=== PATIENT | female | born 1960 | race Caucasian/White ===

== ENCOUNTER 2018-02-12 16:19 | Emergency (ER) | payer OTHER ==
[~2018-02-12] VITALS: Ht 162.6 cm; Wt 88.6 kg
[2018-02-12 16:41] VITALS: BP 129/71; PULSE 103; RESP 16; TEMP 100.2; O2SAT 97
[2018-02-12] MEDS ORDERED: SODIUM CHLOR 0.9% 1000 ML INJ 1,000 ML IV ONE (18:45)
[2018-02-12] MEDS ORDERED: KETOROLAC TROMETHAMINE 30 MG/ML (IVP) VIAL IV PUSH ONE (18:45)
[2018-02-12] MEDS ORDERED: ACETAMINOPHEN 325 MG TAB PO ONE (18:45)
--- NOTE | 2018-02-12 19:00 | PD ---
HPI Chief Complaint: Musculoskeletal Complaint Time Seen by Provider: 18:36 Travel History International Travel<30 days: No Contact w/Intl Traveler<30days: No Traveled to known affect area: No History of Present Illness HPI The patient is a 57-year-old female who presents to the emergency department for generalized fever, body aches, and rash. The patient states she is currently visiting from [place], visiting family in the local area. She has been unable to return to [place] because she lost her gait in the car. 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 The patient also states that one week ago she had a sore throat, fever, headache, cervical lymphadenopathy, and generalized malaise. The cervical lymphadenopathy has had a waxing and waning course. The sore throat improved. She does have a dry nonproductive cough with a history of tobacco use. She denies any chest pain, shortness of breath, nausea, vomiting, or abdominal pain. She also complains of a chronic sore on the medial aspect of the right lower extremity secondary to previous injury that was evaluated in [place]. She states the area will get larger and smaller, intermittently, but denies any drainage from the affected area. The patient does not have a local primary physician. PFSH Past Medical History Narrative Medical Pustular psoriasis Diminished Hearing: No Immunizations Current: Yes Menopausal: Yes Tubal Ligation: Yes Past Surgical History Cholecystectomy: Yes Social History Alcohol Use: Yes (drinks daily) Tobacco Use: Yes (1/2 PPD) Substance Use: No Allergies-Medications (Allergen,Severity, Reaction): Coded Allergies: aspirin (Unverified Allergy, Intermediate, "MY BLOOD IS TOO THIN", 02/12/18 ) ciprofloxacin (Unverified Allergy, Intermediate, HIVES, 02/12/18) Reported Meds & Prescriptions Reported Meds & Active Scripts Active No Active Prescriptions or Reported Medications Review of Systems Except as stated in HPI: all other systems reviewed are Neg General / Constitutional: Positive: Fever Eyes: No: Photophobia HENT: Positive: Headaches, Sore Throat, Neck Pain Cardiovascular: No: Chest Pain or Discomfort Respiratory: Positive: Cough, No: Shortness of Breath Gastrointestinal: No: Nausea, Vomiting, Diarrhea Genitourinary: No: Dysuria Musculoskeletal: Positive: Myalgias Skin: Positive Rash Physical Exam Narrative GENERAL: Awake, alert, 57-year-old female who appears her stated age and is in no acute respiratory distress. SKIN: Patient has pustules noted over the palms and extensor surface of the hands as well as the dorsal aspect of the foot. She also has a flaking psoriatic rash on the bottom of the feet bilaterally. No visible rash of the trunk or back. No visible involvement of the oropharynx. EYES: Pupils equal and round. No scleral icterus. No injection or drainage. ENT: No nasal bleeding or discharge. Poor dentition. No visible rash in the oropharynx. NECK: Trachea midline. No JVD. Bilateral shotty anterior cervical lymphadenopathy which is mobile and tender. No meningeal signs. CARDIOVASCULAR: Regular, tachycardic with a heart rate of 103. RESPIRATORY: No accessory muscle use. Clear to auscultation. Breath sounds equal bilaterally. GASTROINTESTINAL: Abdomen soft, non-tender, nondistended. No rebound tenderness. MUSCULOSKELETAL: Rash as previously noted. Circular lesion on the medial aspect the right lower extremity with a scab in place but no underlying fluctuance. It is approximately 15 cm proximal to the medial malleolus. Approximately 2.5 cm in diameter. NEUROLOGICAL: Awake and alert. No obvious cranial nerve deficits. Motor grossly within normal limits. Normal speech. Nonfocal. Oriented 3. Back: No tenderness over the CVA. No midline tenderness. PSYCHIATRIC: Appropriate mood and affect; insight and judgment normal. Data Data Last Documented VS Vital Signs Date Time Temp Pulse Resp B/P (MAP) Pulse Ox O2 Delivery O2 Flow Rate FiO2 02/12/18 19:16 97 Room Air 02/12/18 19:16 80 20 149/89 (109) 02/12/18 16:41 100.2 Orders Orders Sepsis Workup Initiated (02/12/18 ) Electrocardiogram (02/12/18 18:45) Complete Blood Count With Diff (02/12/18 18:45) Comprehensive Metabolic Panel (02/12/18 18:45) Prothrombin Time / Inr (Pt) (02/12/18 18:45) Act Partial Throm Time (Ptt) (02/12/18 18:45) Urinalysis - C+S If Indicated (02/12/18 18:45) Influenzae A/B Antigen (02/12/18 18:45) Blood Culture (02/12/18 18:45) Chest, Single Ap (02/12/18 18:45) Blood Glucose (02/12/18 18:45) Ecg Monitoring (02/12/18 18:45) Iv Access Insert/Monitor (02/12/18 18:45) Oximetry (02/12/18 18:45) Oxygen Administration (02/12/18 18:45) Acetaminophen (Tylenol) (02/12/18 18:45) Sodium Chlor 0.9% 1000 Ml Inj (Ns 1000 M (02/12/18 18:45) Lactic Acid (02/12/18 18:45) Rapid Plasmin Reagin Screen (02/12/18 18:45) Ketorolac Inj (Toradol Inj) (02/12/18 18:45) Morphine Inj (Morphine Inj) (02/12/18 20:15) Ondansetron Inj (Zofran Inj) (02/12/18 20:15) Hydromorphone Pf Inj (Dilaudid Pf Inj) (02/12/18 20:30) Urine Culture (02/12/18 19:50) Ceftriaxone Inj (Rocephin Inj) (02/12/18 20:45) Labs Laboratory Tests Test 02/12/18 19:48 02/12/18 19:50 Lactic Acid Level 1.2 mmol/L White Blood Count 14.8 TH/MM3 Red Blood Count 4.75 MIL/MM3 Hemoglobin 13.9 GM/DL Hematocrit 42.0 % Mean Corpuscular Volume 88.4 FL Mean Corpuscular Hemoglobin 29.2 PG Mean Corpuscular Hemoglobin Concent 33.0 % Red Cell Distribution Width 13.4 % Platelet Count 406 TH/MM3 Mean Platelet Volume 8.4 FL Neutrophils (%) (Auto) 75.4 % Lymphocytes (%) (Auto) 18.7 % Monocytes (%) (Auto) 3.2 % Eosinophils (%) (Auto) 1.3 % Basophils (%) (Auto) 1.4 % Neutrophils # (Auto) 11.1 TH/MM3 Lymphocytes # (Auto) 2.8 TH/MM3 Monocytes # (Auto) 0.5 TH/MM3 Eosinophils # (Auto) 0.2 TH/MM3 Basophils # (Auto) 0.2 TH/MM3 CBC Comment DIFF FINAL Differential Comment Urine Color YELLOW Urine Turbidity CLEAR Urine pH 5.5 Urine Specific [place] GREATER/EQUAL 1.030 Urine Protein NEG mg/dL Urine Glucose (UA) NEG mg/dL Urine Ketones TRACE mg/dL Urine Occult Blood TRACE Urine Nitrite POS Urine Bilirubin NEG Urine Urobilinogen 0.2 MG/DL Urine Leukocyte Esterase TRACE Urine RBC 3-5 /hpf Urine WBC 15-19 /hpf Urine Squamous Epithelial Cells > 8 /hpf Urine Bacteria MANY /hpf Microscopic Urinalysis Comment CULTURE INDICATED Blood Urea Nitrogen 13 MG/DL Creatinine 0.90 MG/DL Random Glucose 100 MG/DL Total Protein 8.6 GM/DL Albumin 3.1 GM/DL Calcium Level 9.3 MG/DL Alkaline Phosphatase 118 U/L Aspartate Amino Transf (AST/SGOT) 24 U/L Alanine Aminotransferase (ALT/SGPT) 20 U/L Total Bilirubin 0.4 MG/DL Sodium Level 137 MEQ/L Potassium Level 4.6 MEQ/L Chloride Level 104 MEQ/L Carbon Dioxide Level 26.7 MEQ/L Anion Gap 6 MEQ/L Estimat Glomerular Filtration Rate 65 ML/MIN MDM Medical Decision Making Medical Screen Exam Complete: Yes Emergency Medical Condition: Yes Medical Record Reviewed: Yes Interpretation(s) EKG reveals normal sinus rhythm with a rate of 78. No ischemic changes or ectopy noted. Last Impressions Chest X-Ray 02/12/18 184 Signed Impressions: Service Date/Time: Monday, February 12, 2018 18:57 - CONCLUSION: No acute disease. Raad Cuellar MD Date/Time Source Procedure Growth Status 02/12/18 19:48 Blood Peripheral Aerobic Blood Culture Pending Received 02/12/18 19:48 Blood Peripheral Anaerobic Blood Culture Pending Received 02/12/18 19:45 Blood Peripheral Aerobic Blood Culture Pending Received 02/12/18 19:45 Blood Peripheral Anaerobic Blood Culture Pending Received 02/12/18 19:40 Nasal Aspirate Influenza Types A,B Antigen (RUTH) - Final NEGATIVE FOR FLU A AND B ANTIGEN.... Complete 02/12/18 19:50 Urine Clean Catch Urine Culture Pending Received Laboratory Tests Test 02/12/18 19:48 02/12/18 19:50 Lactic Acid Level 1.2 mmol/L White Blood Count 14.8 TH/MM3 Red Blood Count 4.75 MIL/MM3 Hemoglobin 13.9 GM/DL Hematocrit 42.0 % Mean Corpuscular Volume 88.4 FL Mean Corpuscular Hemoglobin 29.2 PG Mean Corpuscular Hemoglobin Concent 33.0 % Red Cell Distribution Width 13.4 % Platelet Count 406 TH/MM3 Mean Platelet Volume 8.4 FL Neutrophils (%) (Auto) 75.4 % Lymphocytes (%) (Auto) 18.7 % Monocytes (%) (Auto) 3.2 % Eosinophils (%) (Auto) 1.3 % Basophils (%) (Auto) 1.4 % Neutrophils # (Auto) 11.1 TH/MM3 Lymphocytes # (Auto) 2.8 TH/MM3 Monocytes # (Auto) 0.5 TH/MM3 Eosinophils # (Auto) 0.2 TH/MM3 Basophils # (Auto) 0.2 TH/MM3 CBC Comment DIFF FINAL Differential Comment Urine Color YELLOW Urine Turbidity CLEAR Urine pH 5.5 Urine Specific [place] GREATER/EQUAL 1.030 Urine Protein NEG mg/dL Urine Glucose (UA) NEG mg/dL Urine Ketones TRACE mg/dL Urine Occult Blood TRACE Urine Nitrite POS Urine Bilirubin NEG Urine Urobilinogen 0.2 MG/DL Urine Leukocyte Esterase TRACE Urine RBC 3-5 /hpf Urine WBC 15-19 /hpf Urine Squamous Epithelial Cells > 8 /hpf Urine Bacteria MANY /hpf Microscopic Urinalysis Comment CULTURE INDICATED Blood Urea Nitrogen 13 MG/DL Creatinine 0.90 MG/DL Random Glucose 100 MG/DL Total Protein 8.6 GM/DL Albumin 3.1 GM/DL Calcium Level 9.3 MG/DL Alkaline Phosphatase 118 U/L Aspartate Amino Transf (AST/SGOT) 24 U/L Alanine Aminotransferase (ALT/SGPT) 20 U/L Total Bilirubin 0.4 MG/DL Sodium Level 137 MEQ/L Potassium Level 4.6 MEQ/L Chloride Level 104 MEQ/L Carbon Dioxide Level 26.7 MEQ/L Anion Gap 6 MEQ/L Estimat Glomerular Filtration Rate 65 ML/MIN Differential Diagnosis Differential diagnosis includes viral exanthem, [id number]-[id number]-mouth disease, secondary syphilis, pustular psoriasis, disseminated gonorrhea, cellulitis, influenza. Narrative Course IV was established, labs are drawn and sent, and the patient was placed on cardiac telemetry monitoring and continuous pulse oximetry monitoring. Blood culture and lactic acid were sent to lab. Chest x-ray was obtained. The patient was administered IV fluids and Toradol. RPR was sent to lab. Chest x- ray was unremarkable. Influenza screen is negative. White count is mildly elevated at 14.8. LFTs and lipase with BUN and creatinine are normal. I did review the EMR, the patient had a negative FTA-ABS in 2010. RPR is pending. Patient's rash could be secondary syphilis versus [id number] versus viral syndrome versus pustular psoriasis. She is advised to follow-up with dermatology. UA does reveal a UTI, patient was administered 1 dose of Rocephin and will be discharged home on Bactrim as she is allergic to Cipro. She is advised to follow-up with a primary physician and a tool technician. She will be provided a copy of her labs at discharge. Return if symptoms worsen or progress. RPR will have to be followed up with on an outpatient basis, we called lab and they only run it Thursday through Thursday and normal business hours. Diagnosis Primary Impression: UTI (urinary tract infection) Qualified Codes: N30.00 - Acute cystitis without hematuria Additional Impression: Rash and nonspecific skin eruption Patient Instructions: General Instructions Additional Instructions: Follow-up with a primary physician and dermatology. Please provide the patient a copy of her labs, x-ray results, and influenza results at discharge. Return if symptoms worsen or progress. Med/Other Pt SpecificInfo: Prescription(s) given Scripts Sulfamethoxazole-Trimethoprim (Bactrim DS) 800-160 Mg Tab 1 TAB PO BID for Infection, #14 TAB 0 Refills Prov: Humza Parsons MD 02/12/18 Disposition: DISCHARGE HOME Condition: Stable Humza Parsons MD Feb 12, 2018 19:00
[2018-02-12 19:16] VITALS: BP 149/89; PULSE 80; RESP 20; O2SAT 97
--- NOTE | 2018-02-12 19:46 | RADRPT ---
EXAM DATE/TIME: 02/12/2018 18:57 [facility] COMPARISON: No previous studies available for comparison. INDICATIONS : Fever. MEDICAL HISTORY : None. SURGICAL HISTORY : None. ENCOUNTER: Initial ACUITY: 1 day PAIN SCORE: 6/10 LOCATION: Bilateral chest FINDINGS: A single view of the chest demonstrates the lungs to be symmetrically aerated without evidence of mas s, infiltrate or effusion. The cardiomediastinal contours are unremarkable. Osseous structures are intact. CONCLUSION: No acute disease. Raad Cuellar MD on February 12, 2018 at 19:43 Board Certified Radiologist. This report was verified electronically.
[2018-02-12 20:04] LABS: BILIRUBIN, URINE NEG (NEG); BLOOD, URINE TRACE (NEG); GLUCOSE,URINE NEG (NEG); KETONE, URINE TRACE mg/dL (NEG); NITRITE,URINE POS (NEG); PH, URINE 5.5 (5.0-8.5); URINE COLOR YELLOW (YELLW/STRAW); URINE LEUKOCYTE ESTERASE TRACE (NEG)
[2018-02-12 20:10] LABS: AUTOMATED NEUTROPHIL # 11.1 TH/MM3 (1.8-7.7); BASOPHIL # 0.2 TH/MM3 (0-0.2); BASOPHIL % 1.4 % (0.0-2.0); EOSINOPHIL # 0.2 TH/MM3 (0-0.4); EOSINOPHIL % 1.3 % (0.0-4.0); HEMOGLOBIN 13.9 GM/DL (11.6-15.3); LYMPH % 18.7 % (9.0-44.0); LYMPHOCYTE # 2.8 TH/MM3 (1.0-4.8); MEAN CELL VOLUME 88.4 FL (80.0-100.0); MEAN CORPUSCULAR HEMOGLOBIN 29.2 PG (27.0-34.0); MEAN PLATELET VOLUME 8.4 FL (7.0-11.0); MONO % 3.2 % (0.0-8.0); MONOCYTE # 0.5 TH/MM3 (0-0.9); NEUT % 75.4 % (16.0-70.0); PLATELET COUNT 406 TH/MM3 (150-450); RED BLOOD COUNT 4.75 MIL/MM3 (4.00-5.30); RED CELL DISTRIBUTION WIDTH 13.4 % (11.6-17.2); WHITE BLOOD COUNT 14.8 TH/MM3 (4.0-11.0)
[2018-02-12] MEDS ORDERED: MORPHINE SULFATE 2 MG/ML INJ IV PUSH ONE (20:15)
[2018-02-12] MEDS ORDERED: ONDANSETRON HCL 4 MG/2 ML VIAL IV PUSH ONE (20:15)
[2018-02-12 20:18] LABS: CHLORIDE 104 MEQ/L (98-107); SODIUM (NA) 137 MEQ/L (136-145)
[2018-02-12 20:19] LABS: BACTERIA, URINE MANY /hpf; SQUAMOUS EPITHELIAL CELL URINE > 8 /hpf (0-5); WBC, URINE 15-19 /hpf (0-5)
[2018-02-12 20:21] LABS: CALCIUM 9.3 MG/DL (8.5-10.1)
[2018-02-12 20:22] LABS: ALBUMIN 3.1 GM/DL (3.4-5.0); BICARBONATE 26.7 MEQ/L (21.0-32.0); BLOOD UREA NITROGEN 13 MG/DL (7-18); GLUCOSE,RANDOM 100 MG/DL (74-106)
[2018-02-12 20:25] LABS: ALT (GPT) 20 U/L (10-53); AST (GOT) 24 U/L (15-37); GLOMERULAR FILTRATION RATE 65 ML/MIN (>89)
[2018-02-12 20:26] LABS: TOTAL BILIRUBIN ADULT 0.4 MG/DL (0.2-1.0)
[2018-02-12 20:27] LABS: TOTAL PROTEIN 8.6 GM/DL (6.4-8.2)
[2018-02-12 20:28] LABS: ALKALINE PHOSPHATASE 118 U/L (45-117)
[2018-02-12] MEDS ORDERED: HYDROmorphone HCL PF 2 MG/ML VIAL IV PUSH ONE (20:30)
[2018-02-12] MEDS ORDERED: cefTRIAXone INJ 1,000 MG in SODIUM CHLORIDE 0.9% INJ 100 ML IV ONE (20:45)
[2018-02-12] MEDS ORDERED: BACT800T5 PO (20:47)
[2018-02-12 20:53] LABS: PROTHROMBIN TIME - PATIENT 10.1 SEC (9.8-11.6)
[2018-02-12 21:00] VITALS: BP 143/58; PULSE 82; RESP 16; O2SAT 96
[2018-02-12] MEDS ORDERED: TRAM50TA PO (21:31)
[2018-02-12 22:10] VITALS: BP 132/67; PULSE 88; RESP 16; O2SAT 97
--- NOTE | 2018-02-13 19:31 | EKG ---
Date Performed: 02/12/2018 Time Performed: 19:12:44 PTAGE: 57 years EKG: Sinus rhythm NORMAL ECG Since the PREVIOUS TRACING , no significant change noted PREVIOUS TRACIN11/29/2010 17.17 DOCTOR: Alireza Hyman Interpretating Date/Time 02/13/2018 19:29:16
== END 2018-02-12 22:20 | disposition home or self-care (01) ==
LOC: PHED 16:19
DX: N30.00 Acute cystitis without hematuria (principal); R21 Rash and other nonspecific skin eruption; D72.829 Elevated white blood cell count, unspecified; M79.1 Myalgia; R05 Cough; R59.0 Localized enlarged lymph nodes; B96.20 Unspecified Escherichia coli [E. coli] as the cause of diseases classified elsewhere; F17.200 Nicotine dependence, unspecified, uncomplicated; Z87.2 Personal history of diseases of the skin and subcutaneous tissue
CPT/HCPCS: 71045; 80053; 81001; 83605; 85025; 85610; 85730; 86592; 87040; 87077; 87086; 87186; 87804; 93005; 96361; 96365; 96375; 99285; J0696; J1885; J2270; J2405; J7030

== ENCOUNTER 2018-02-19 19:20 | Observation (INO) | payer MEDICAID, OTHER ==
[~2018-02-19] VITALS: Ht 162.6 cm; Wt 81.5 kg
[~2018-02-19 19:20] MED LIST: BACT800T5 PO; TRAM50TA PO
[2018-02-19 19:23] VITALS: BP 142/89; PULSE 117; RESP 18; TEMP 99.3; O2SAT 96
[2018-02-19 21:50] VITALS: BP 146/61; PULSE 87; RESP 16; O2SAT 98
--- NOTE | 2018-02-19 22:09 | PD ---
HPI Chief Complaint: Injury Time Seen by Provider: 21:46 Travel History International Travel<30 days: No Contact w/Intl Traveler<30days: No Traveled to known affect area: No History of Present Illness HPI Patient is a 57-year-old female who was recently at [place] with a infected left foot she says she had an injury to the foot in July and it is never fully recovered. She has psoriasis on top of the injury and now appears to be cellulitic on top of the injury. Patient uses a cane to walk on the foot with the pain that she has she also has psoriasis in her hands and foot which is a chronic condition she has had. Now she is here for severe pain swelling redness and tenderness to the left foot it looks like there is an injury with cellulitis as well as psoriasis secondary on the opposite side of the foot and the plantar surface left side foot she is afebrile she was recently on Bactrim from [place] for UTI she was taking it twice daily she has 1 day left of that. She also was cultured at that time serology for syphilis but her RPR is negative. Patient in the ER is main complaint is pain localized left foot redness swelling tenderness Bactrim has not made it better PFSH Past Medical History Cerebrovascular Accident: Yes (x1) Diminished Hearing: No Immunizations Current: Yes Tetanus Vaccination: < 5 Years Influenza Vaccination: No ?: Not Menopausal: Yes Tubal Ligation: Yes Past Surgical History Cholecystectomy: Yes Social History Alcohol Use: No (quit) Tobacco Use: Yes (/ PPD) Substance Use: No Allergies-Medications (Allergen,Severity, Reaction): Coded Allergies: dalbavancin (Verified Allergy, Severe, Hives, 02/20/18) aspirin (Verified Allergy, Intermediate, "MY BLOOD IS TOO THIN", 02/19/18) ciprofloxacin (Verified Allergy, Intermediate, HIVES, 02/19/18) Reported Meds & Prescriptions Reported Meds & Active Scripts Active Review of Systems Except as stated in HPI: all other systems reviewed are Neg Musculoskeletal: Positive: Myalgias, Arthralgias Physical Exam Narrative GENERAL: SKIN: Warm and dry. HEAD: Atraumatic. Normocephalic. EYES: Pupils equal and round. No scleral icterus. No injection or drainage. ENT: No nasal bleeding or discharge. Mucous membranes pink and moist. NECK: Trachea midline. No JVD. CARDIOVASCULAR: Regular rate and rhythm. RESPIRATORY: No accessory muscle use. Clear to auscultation. Breath sounds equal bilaterally. GASTROINTESTINAL: Abdomen soft, non-tender, nondistended. Hepatic and splenic margins not palpable. MUSCULOSKELETAL: Extremities left foot was red and erythematous with a injury to the outer lateral aspect of the dorsum of the foot and the plantar medial aspect has psoriasis looking scales there is redness all the way around her toes and all the way up to her mid tib-fib tenderness swelling ...... NEUROLOGICAL: Awake and alert. No obvious cranial nerve deficits. Motor grossly within normal limits. Five out of 5 muscle strength in the arms and legs. Normal speech. PSYCHIATRIC: Appropriate mood and affect; insight and judgment normal. Data Data Last Documented VS Vital Signs Date Time Temp Pulse Resp B/P (MAP) Pulse Ox O2 Delivery O2 Flow Rate FiO2 02/20/18 07:27 84 20 135/64 (87) 98 Room Air 02/20/18 06:22 98.6 Orders Orders Vancomycin Inj (Vancomycin Inj) (02/19/18 22:15) Complete Blood Count With Diff (02/19/18 22:33) Comprehensive Metabolic Panel (02/19/18 22:33) Lipase (02/19/18 22:33) Blood Culture (02/19/18 22:33) Lactic Acid (02/19/18 22:33) Foot, Complete ([id number]) (02/19/18 ) Ankle, Complete ([id number]) (02/19/18 ) Wound Culture And Gram Stain (02/20/18 00:14) Ketorolac Inj (Toradol Inj) (02/20/18 00:30) [facility] ([facility] (02/20/18 05:00) Asp:No Reaction To Dalbav/Vanc (Asp Crit (02/20/18 06:15) Asp: Does Not Meet Inpt Admit (Asp Crit: (02/20/18 06:15) Asp: Iv Antibiotics Admit Only (Asp Crit (02/20/18 06:15) Asp: Location Of Dalbav Admin (Asp Crit: (02/20/18 06:15) [facility] ([facility] (02/20/18 06:15) Dalbavancin Inj (Dalvance Inj) (02/20/18 06:01) Diphenhydramine Inj (Benadryl Inj) (02/20/18 07:15) Methylprednisolone So Succ Inj (Solumedr (02/20/18 07:15) Famotidine Inj (Pepcid Inj) (02/20/18 07:15) Sodium Chloride 0.9% Flush (Ns Flush) (02/20/18 07:15) Admit Order (Ed Use Only) (02/20/18 08:05) Labs Laboratory Tests Test 02/19/18 22:35 White Blood Count 9.0 TH/MM3 Red Blood Count 4.08 MIL/MM3 Hemoglobin 12.4 GM/DL Hematocrit 36.0 % Mean Corpuscular Volume 88.4 FL Mean Corpuscular Hemoglobin 30.4 PG Mean Corpuscular Hemoglobin Concent 34.4 % Red Cell Distribution Width 13.6 % Platelet Count 367 TH/MM3 Mean Platelet Volume 8.9 FL Neutrophils (%) (Auto) 63.8 % Lymphocytes (%) (Auto) 24.4 % Monocytes (%) (Auto) 10.2 % Eosinophils (%) (Auto) 0.8 % Basophils (%) (Auto) 0.8 % Neutrophils # (Auto) 5.7 TH/MM3 Lymphocytes # (Auto) 2.2 TH/MM3 Monocytes # (Auto) 0.9 TH/MM3 Eosinophils # (Auto) 0.1 TH/MM3 Basophils # (Auto) 0.1 TH/MM3 CBC Comment DIFF FINAL Differential Comment Blood Urea Nitrogen 10 MG/DL Creatinine 1.01 MG/DL Random Glucose 99 MG/DL Total Protein 9.0 GM/DL Albumin 3.0 GM/DL Calcium Level 9.0 MG/DL Alkaline Phosphatase 111 U/L Aspartate Amino Transf (AST/SGOT) 23 U/L Alanine Aminotransferase (ALT/SGPT) 18 U/L Total Bilirubin 0.3 MG/DL Sodium Level 137 MEQ/L Potassium Level 3.8 MEQ/L Chloride Level 103 MEQ/L Carbon Dioxide Level 27.5 MEQ/L Anion Gap 7 MEQ/L Estimat Glomerular Filtration Rate 57 ML/MIN Lactic Acid Level 0.9 mmol/L Lipase 143 U/L MDM Medical Decision Making Medical Screen Exam Complete: Yes Emergency Medical Condition: Yes Differential Diagnosis cellulitis vs psoriasis traumatic chronic infection , from old crush injury , fracture other Narrative Course I discuss admission with Dr Curtis , She feels based on labs and history pt does not need admit but would benefit from Dalvance and follow up [facility] Dalvaance given and will d/c with [facility] Diagnosis Primary Impression: Cellulitis Qualified Codes: L03.116 - Cellulitis of left lower limb Patient Instructions: Cellulitis (ED), General Instructions Scripts Walker with Front Wheels (Walker with Front Wheels) 1 Mis Mis EA .XX DIRECTED, #1 0 Refills Prov: Eusebio De La Fuente MD 02/21/18 Hydrocodone/Acetaminophen (Hydrocodone-Acetamin 5-325 mg) 5 Mg-325 Mg Tablet 1 TAB PO Q4H Y for PAIN SCALE 1 TO 10, #20 TAB Prov: Eusebio De La Fuente MD 02/21/18 Doxycycline Hyclate (Doxycycline Hyclate) 100 Mg Cap 100 MG PO BID for Infection, #28 CAP 0 Refills Prov: Eusebio De La Fuente MD 02/21/18 Amoxicillin-Clavulanate (Augmentin) 875-125 Mg Tab 1 TAB PO BID for Infection for 14 Days, #28 TAB 0 Refills Prov: Eusebio De La Fuente MD 02/21/18 Triamcinolone Topical (Triamcinolone Topical) 0.1 % Oint 1 APPLIC TOPICAL DAILY for Rash for 14 Days, TUBE Prov: Eusebio De La Fuente MD 02/21/18 Disposition: 01 DISCHARGE HOME Condition: Oliver Gregory MD Feb 19, 2018 22:09
[2018-02-19] MEDS ORDERED: VANCOMYCIN INJ 1,000 MG in SODIUM CHLOR 0.9% 250 ML INJ 250 ML IV ONE (22:15)
--- NOTE | 2018-02-19 23:01 | RADRPT ---
EXAM DATE/TIME: 02/19/2018 22:46 [facility] COMPARISON: No previous studies available for comparison. INDICATIONS : Patient complains of pain, swelling, and open sores on right ankle. MEDICAL HISTORY : None. SURGICAL HISTORY : None. ENCOUNTER: Initial ACUITY: 1 month PAIN SCORE: 8/10 LOCATION: Right Ankle FINDINGS: Three view exam was performed of the right ankle. The bony structures are in normal alignment. No e vidence of fracture, dislocation, or soft tissue swelling. The ankle mortise is intact. No radiopaq ue foreign bodies are seen. Bony mineralization is normal. CONCLUSION: Unremarkable examination of the right ankle. Edgard Maldonado MD on February 19, 2018 at 22:59 Board Certified Radiologist. This report was verified electronically.
--- NOTE | 2018-02-19 23:02 | RADRPT ---
EXAM DATE/TIME: 02/19/2018 22:48 [facility] COMPARISON: No previous studies available for comparison. INDICATIONS : Patient complains of pain, swelling, and open sores to right foot and ankle. MEDICAL HISTORY : None. SURGICAL HISTORY : None. ENCOUNTER: Initial ACUITY: 1 month PAIN SCORE: 8/10 LOCATION: Right Foot FINDINGS: Three view examination of the right foot demonstrates no soft tissue swelling, dislocation, or fractu re. The tarsal bones appear intact. The interphalangeal and metatarsophalangeal joints are intact. The calcaneus is intact. Bony mineralization is normal. CONCLUSION: Unremarkable examination of the right foot. Edgard Maldonado MD on February 19, 2018 at 23:00 Board Certified Radiologist. This report was verified electronically.
[2018-02-19 23:09] LABS: AUTOMATED NEUTROPHIL # 5.7 TH/MM3 (1.8-7.7); BASOPHIL # 0.1 TH/MM3 (0-0.2); BASOPHIL % 0.8 % (0.0-2.0); EOSINOPHIL # 0.1 TH/MM3 (0-0.4); EOSINOPHIL % 0.8 % (0.0-4.0); HEMOGLOBIN 12.4 GM/DL (11.6-15.3); LYMPH % 24.4 % (9.0-44.0); LYMPHOCYTE # 2.2 TH/MM3 (1.0-4.8); MEAN CELL VOLUME 88.4 FL (80.0-100.0); MEAN CORPUSCULAR HEMOGLOBIN 30.4 PG (27.0-34.0); MEAN CORPUSCULAR HGB CONC 34.4 % (32.0-36.0); MEAN PLATELET VOLUME 8.9 FL (7.0-11.0); MONO % 10.2 % (0.0-8.0); MONOCYTE # 0.9 TH/MM3 (0-0.9); NEUT % 63.8 % (16.0-70.0); PLATELET COUNT 367 TH/MM3 (150-450); RED BLOOD COUNT 4.08 MIL/MM3 (4.00-5.30); RED CELL DISTRIBUTION WIDTH 13.6 % (11.6-17.2)
[2018-02-19 23:13] LABS: ALT (GPT) 18 U/L (10-53); AST (GOT) 23 U/L (15-37); BICARBONATE 27.5 MEQ/L (21.0-32.0); BLOOD UREA NITROGEN 10 MG/DL (7-18); CHLORIDE 103 MEQ/L (98-107); CREATININE 1.01 MG/DL (0.50-1.00); GLOMERULAR FILTRATION RATE 57 ML/MIN (>89); GLUCOSE,RANDOM 99 MG/DL (74-106); SODIUM (NA) 137 MEQ/L (136-145)
[2018-02-19 23:16] LABS: ALKALINE PHOSPHATASE 111 U/L (45-117); TOTAL BILIRUBIN ADULT 0.3 MG/DL (0.2-1.0)
[2018-02-20] VITALS (7 sets, daily range): BP systolic 112–153; BP diastolic 55–67; PULSE 76–98; RESP 16–20; TEMP 97.8–98.6; O2SAT 95–98
[2018-02-20] MEDS ORDERED: KETOROLAC TROMETHAMINE 30 MG/ML (IVP) VIAL IV PUSH ONE (00:30)
[2018-02-20] MEDS ORDERED: MISCELLANEOUS PHARMACY INFORMATION XX ONE ×2 (05:00→06:15)
[2018-02-20] MEDS ORDERED: DALBAVANCIN INJ 1,500 MG in DEXTROSE 5% IN WATE 500 ML INJ 500 ML IV STA ×2 (06:01)
[2018-02-20] MEDS ORDERED: ASP: Does not meet inpatient admission criteria OTHER ONE (06:15)
[2018-02-20] MEDS ORDERED: ASP: Location of Dalbavancin administration OTHER ONE (06:15)
[2018-02-20] MEDS ORDERED: ASP: Only reason for admit - IV antibiotics OTHER ONE (06:15)
[2018-02-20] MEDS ORDERED: ASP: No known hypersensitivity to Vanco, Telavancin, Dalbavancin OTHER ONE (06:15)
[2018-02-20] MEDS ORDERED: FAMOTIDINE 20 MG/2 ML VIAL IV PUSH ONE (07:15)
[2018-02-20] MEDS ORDERED: methylPREDNISolone SOD SUCC 125 MG/2 ML VIAL IV PUSH ONE (07:15)
[2018-02-20] MEDS ORDERED: diphenhydrAMINE HCL 50 MG/ML VIAL IVP ONE (07:15)
[2018-02-20] MEDS ORDERED: SODIUM CHLORIDE 0.9% FLUSH 10 ML FLUSH IV FLUSH PRN (07:15)
--- NOTE | 2018-02-20 07:22 | PD ---
Physical Exam Narrative GENERAL: SKIN: Warm and dry.....within 5 min of dalvance, pt developed hives to arm and back HEAD: Atraumatic. Normocephalic. EYES: Pupils equal and round. No scleral icterus. No injection or drainage. ENT: No nasal bleeding or discharge. Mucous membranes pink and moist. NECK: Trachea midline. No JVD. CARDIOVASCULAR: Regular rate and rhythm. RESPIRATORY: No accessory muscle use. Clear to auscultation. Breath sounds equal bilaterally. GASTROINTESTINAL: Abdomen soft, non-tender, nondistended. MUSCULOSKELETAL: Extremities without clubbing, cyanosis, or edema. No obvious deformities. right ertyhematous/warm/dorsum of foot with streaking up to ant tib NEUROLOGICAL: Awake and alert. No obvious cranial nerve deficits. Motor grossly within normal limits. Five out of 5 muscle strength in the arms and legs. Normal speech. PSYCHIATRIC: Appropriate mood and affect; insight and judgment normal. Data Data Last Documented VS Vital Signs Date Time Temp Pulse Resp B/P (MAP) Pulse Ox O2 Delivery O2 Flow Rate FiO2 02/20/18 06:22 98.6 76 16 112/55 (74) 98 02/19/18 21:50 Room Air Orders Orders Vancomycin Inj (Vancomycin Inj) (02/19/18 22:15) Complete Blood Count With Diff (02/19/18 22:33) Comprehensive Metabolic Panel (02/19/18 22:33) Lipase (02/19/18 22:33) Blood Culture (02/19/18 22:33) Lactic Acid (02/19/18 22:33) Foot, Complete ([id number]) (02/19/18 ) Ankle, Complete ([id number]) (02/19/18 ) Wound Culture And Gram Stain (02/20/18 00:14) Ketorolac Inj (Toradol Inj) (02/20/18 00:30) [facility] [place] (02/20/18 05:00) Asp:No Reaction To Dalbav/Vanc (Asp Crit (02/20/18 06:15) Asp: Does Not Meet Inpt Admit (Asp Crit: (02/20/18 06:15) Asp: Iv Antibiotics Admit Only (Asp Crit (02/20/18 06:15) Asp: Location Of Dalbav Admin (Asp Crit: (02/20/18 06:15) [facility] [place] (02/20/18 06:15) Dalbavancin Inj (Dalvance Inj) (02/20/18 06:01) Diphenhydramine Inj (Benadryl Inj) (02/20/18 07:15) Methylprednisolone So Succ Inj (Solumedr (02/20/18 07:15) Famotidine Inj (Pepcid Inj) (02/20/18 07:15) Sodium Chloride 0.9% Flush (Ns Flush) (02/20/18 07:15) Labs Laboratory Tests Test 02/19/18 22:35 White Blood Count 9.0 TH/MM3 Red Blood Count 4.08 MIL/MM3 Hemoglobin 12.4 GM/DL Hematocrit 36.0 % Mean Corpuscular Volume 88.4 FL Mean Corpuscular Hemoglobin 30.4 PG Mean Corpuscular Hemoglobin Concent 34.4 % Red Cell Distribution Width 13.6 % Platelet Count 367 TH/MM3 Mean Platelet Volume 8.9 FL Neutrophils (%) (Auto) 63.8 % Lymphocytes (%) (Auto) 24.4 % Monocytes (%) (Auto) 10.2 % Eosinophils (%) (Auto) 0.8 % Basophils (%) (Auto) 0.8 % Neutrophils # (Auto) 5.7 TH/MM3 Lymphocytes # (Auto) 2.2 TH/MM3 Monocytes # (Auto) 0.9 TH/MM3 Eosinophils # (Auto) 0.1 TH/MM3 Basophils # (Auto) 0.1 TH/MM3 CBC Comment DIFF FINAL Differential Comment Blood Urea Nitrogen 10 MG/DL Creatinine 1.01 MG/DL Random Glucose 99 MG/DL Total Protein 9.0 GM/DL Albumin 3.0 GM/DL Calcium Level 9.0 MG/DL Alkaline Phosphatase 111 U/L Aspartate Amino Transf (AST/SGOT) 23 U/L Alanine Aminotransferase (ALT/SGPT) 18 U/L Total Bilirubin 0.3 MG/DL Sodium Level 137 MEQ/L Potassium Level 3.8 MEQ/L Chloride Level 103 MEQ/L Carbon Dioxide Level 27.5 MEQ/L Anion Gap 7 MEQ/L Estimat Glomerular Filtration Rate 57 ML/MIN Lactic Acid Level 0.9 mmol/L Lipase 143 U/L [facility] Medical Record Reviewed: Yes Supervised Visit with MARLENA: No Narrative Course within 5 min of dalvance, pt developed hives to arm and back....patient is on bactrim 8 days without improvement as a mattter of fact it is worsening. Diagnosis Primary Impression: Cellulitis Qualified Codes: L03.116 - Cellulitis of left lower limb Additional Impression: Failure of outpatient treatment Admitting Information Admitting Physician Requests: Observation Neo Hood MD Feb 20, 2018 07:22
[2018-02-20] MEDS ORDERED: MORPHINE SULFATE 4 MG/ML INJ IV PUSH ONE (08:15)
[2018-02-20] MEDS ORDERED: Vancomycin Consult Pharmacy 1 EA OTHER SCH (09:15)
[2018-02-20] MEDS ORDERED: NALOXONE HCL 0.4 MG/ML AMP IV PUSH PRN (09:15)
[2018-02-20] MEDS ORDERED: ACETAMINOPHEN/HYDROcodone 325 MG/5 MG TAB PO PRN (09:15)
[2018-02-20] MEDS ORDERED: ONDANSETRON HCL 4 MG/2 ML VIAL IVP PRN (09:15)
[2018-02-20] MEDS ORDERED: MORPHINE SULFATE 4 MG/ML INJ IV PUSH PRN (09:15)
[2018-02-20] MEDS ORDERED: ACETAMINOPHEN 325 MG TAB PO PRN (09:15)
[2018-02-20] MEDS: SODIUM CHLOR 0.9% 1000 ML INJ 1,000 ML IV SCH ×2 (10:09→18:01)
[2018-02-20] MEDS: HEPARIN SODIUM - SQ 10,000 UNITS/ML VIAL SQ SCH ×2 (10:10→18:01)
[2018-02-20] MEDS ORDERED: VANCOMYCIN INJ 1,250 MG in SODIUM CHLOR 0.9% 250 ML INJ 250 ML IV ONE (11:00)
--- NOTE | 2018-02-20 11:59 | HHI.HP ---
[facility] Unknown Admission Diagnosis FOOT CELLULITIS WITH FAILED OUTPATIENT THERAPY Diagnoses: Chief Complaint: Foot swelling and redness Travel History International Travel<30 Days: No Contact w/Intl Traveler <30 Da: No Traveled to Known Affected Are: No History of Present Illness 67 years old female who recently presented to [facility] with right foot infection recurrent due to previous injury of heavy object fall on the foot last August which has been treated at the time and according the patient recovered but then started having recurrent infection. Patient was prescribed p.o. 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 Patient denied any other symptoms beside the foot and bad arthritis in her feet and hips. In ED patient was given a dose of vancomycin and the plan was to send her home ondalbvancin, however after the first dose patient started to develop an allergic reaction with hives and itching, instantly patient was given Solu- Medrol and Benadryl and she will be admitted for observation continue on vancomycin with podiatry consultation Review of Systems All systems reviewed and was positive for what is mentioned in history of present illness otherwise negative Past Family Social History Past Medical History Arthritis Past Surgical History Cholecystectomy Allergies: Coded Allergies: dalbavancin (Verified Allergy, Severe, Hives, 02/20/18) aspirin (Verified Allergy, Intermediate, "MY BLOOD IS TOO THIN", 02/19/18) ciprofloxacin (Verified Allergy, Intermediate, HIVES, 02/19/18) Family History Mother had diabetes Social History Smoke half to 1 pack per day no alcohol or illicit drug abuse Physical Exam Vital Signs Vital Signs Date Time Temp Pulse Resp B/P (MAP) Pulse Ox O2 Delivery O2 Flow Rate FiO2 02/20/18 10:50 98.1 76 18 153/67 (95) 96 02/20/18 10:30 02/20/18 08:25 16 02/20/18 07:27 84 20 135/64 (87) 98 Room Air 02/20/18 06:22 98.6 76 16 112/55 (74) 98 02/20/18 01:32 16 02/19/18 21:50 87 16 146/61 (89) 98 Room Air 02/19/18 19:23 99.3 117 18 142/89 (106) 96 Physical Exam GENERAL: This is a well-nourished, well-developed patient, in no apparent distress. SKIN: No rashes, warm and dry HEAD: Atraumatic. Normocephalic. EYES: Pupils equal round and reactive. Extraocular motions intact. No scleral icterus. ENT: Nose without bleeding, or drainage, Airway patent. NECK: Trachea midline. Supple CARDIOVASCULAR: Regular rate and rhythm without murmurs, gallops, or rubs. RESPIRATORY: Fair air entry bilaterally. No wheezes, rales, or rhonchi. GASTROINTESTINAL: Abdomen soft, non-tender, nondistended. Positive bowel sounds MUSCULOSKELETAL: Right dorsal foot with swelling tenderness erythema and scaly skin, my plantar surface of the foot with dry scaly skin some silver scaly and some dried pustules NEUROLOGICAL: Awake and alert. Moves all extremity. Normal speech.no focal neurological deficit Laboratory Laboratory Tests Test 02/19/18 22:35 White Blood Count 9.0 Red Blood Count 4.08 Hemoglobin 12.4 Hematocrit 36.0 Mean Corpuscular Volume 88.4 Mean Corpuscular Hemoglobin 30.4 Mean Corpuscular Hemoglobin Concent 34.4 Red Cell Distribution Width 13.6 Platelet Count 367 Mean Platelet Volume 8.9 Neutrophils (%) (Auto) 63.8 Lymphocytes (%) (Auto) 24.4 Monocytes (%) (Auto) 10.2 Eosinophils (%) (Auto) 0.8 Basophils (%) (Auto) 0.8 Neutrophils # (Auto) 5.7 Lymphocytes # (Auto) 2.2 Monocytes # (Auto) 0.9 Eosinophils # (Auto) 0.1 Basophils # (Auto) 0.1 CBC Comment DIFF FINAL Differential Comment Blood Urea Nitrogen 10 Creatinine 1.01 Random Glucose 99 Total Protein 9.0 Albumin 3.0 Calcium Level 9.0 Alkaline Phosphatase 111 Aspartate Amino Transf (AST/SGOT) 23 Alanine Aminotransferase (ALT/SGPT) 18 Total Bilirubin 0.3 Sodium Level 137 Potassium Level 3.8 Chloride Level 103 Carbon Dioxide Level 27.5 Anion Gap 7 Estimat Glomerular Filtration Rate 57 Lactic Acid Level 0.9 Lipase 143 Date/Time Source Procedure Growth Status 02/19/18 22:35 Blood Peripheral Aerobic Blood Culture - Preliminary NO GROWTH IN 1 DAY Resulted 02/19/18 22:35 Blood Peripheral Anaerobic Blood Culture - Preliminary NO GROWTH IN 1 DAY Resulted 02/20/18 00:00 Wound Foot Gram Stain - Final Resulted 02/20/18 00:00 Wound Foot Wound Culture Pending Resulted Result Diagram: 02/19/18223402/19/182234 Imaging Last Impressions Foot X-Ray 02/19/18 0000 Signed Impressions: Service Date/Time: Monday, February 19, 2018 22:48 - CONCLUSION: Unremarkable examination of the right foot. Edgard Maldonado MD Ankle X-Ray 02/19/18 0000 Signed Impressions: Service Date/Time: Monday, February 19, 2018 22:46 - CONCLUSION: Unremarkable examination of the right ankle. MD Hansel Oliver VTE Risk Assessment Caprini VTE Risk Assessment: Mod/High Risk (score >= 2) Caprini Risk Assessment Model Point Value = 1 Point Value = 2 Point Value = 3 Point Value = 5 Age 41-60 Minor surgery BMI > 25 kg/m2 Swollen legs Varicose veins or History of unexplained or recurrent spontaneous Oral contraceptives or hormone replacement Sepsis (< 1 month) Serious lung disease, including pneumonia (< 1 month) Abnormal pulmonary function Acute myocardial infarction Congestive heart failure (< 1 month) History of inflammatory bowel disease Medical patient at bed rest Age 61-74 Arthroscopic surgery Major open surgery (> 45 min) Laparoscopic surgery (> 45 min) Malignancy Confined to bed (> 72 hours) Immobilizing plaster cast Central venous access Age >= 75 History of VTE Family history of VTE Factor V Leiden Prothrombin [id number] Lupus anticoagulant Anticardiolipin antibodies Elevated serum homocysteine Heparin-induced thrombocytopenia Other congenital or acquired thrombophilia Stroke (< 1 month) Elective arthroplasty Hip, pelvis, or leg fracture Acute spinal cord injury (< 1 month) Prophylaxis Regimen Total Risk Factor Score Risk Level Prophylaxis Regimen 0-1 Low Early ambulation 2 Moderate Order ONE of the following: *Sequential Compression Device (SCD) *Heparin 5000 units SQ BID 3-4 Higher Order ONE of the following medications: *Heparin 5000 units SQ TID *Enoxaparin/Lovenox 40 mg SQ daily (WT < 150 kg, CrCl > 30 mL/min) *Enoxaparin/Lovenox 30 mg SQ daily (WT < 150 kg, CrCl > 10-29 mL/min) *Enoxaparin/Lovenox 30 mg SQ BID (WT < 150 kg, CrCl > 30 mL/min) AND/OR *Sequential Compression Device (SCD) 5 or more Highest Order ONE of the following medications: *Heparin 5000 units SQ TID (Preferred with Epidurals) *Enoxaparin/Lovenox 40 mg SQ daily (WT < 150 kg, CrCl > 30 mL/min) *Enoxaparin/Lovenox 30 mg SQ daily (WT < 150 kg, CrCl > 10-29 mL/min) *Enoxaparin/Lovenox 30 mg SQ BID (WT < 150 kg, CrCl > 30 mL/min) AND *Sequential Compression Device (SCD) Assessment and Plan Assessment and Plan 57 years old female with history of pustular psoriasis and right foot injury 5 months ago presented with Recurrent right dorsal foot infection failed outpatient antibiotic Allergic reaction to Dalbavancin History of basilar psoriasis patient not on any other medication besides emollient DVT prophylaxis Plan: Patient was given Solu-Medrol, Benadryl with good improvement of the allergic reaction Stopped the Dalbavancin, placed back on vancomycin No leukocytosis or left shift, monitor CBC ESR CRP Consult podiatry Heparin for DVT prophylaxis Discussed Condition With Patient in ED physician Raheem Desai MD Feb 20, 2018 11:59
[2018-02-20] MEDS: ACETAMINOPHEN/HYDROcodone 325 MG/7.5 MG TAB PO PRN ×2 (18:00→22:56)
[2018-02-21] MEDS: HEPARIN SODIUM - SQ 10,000 UNITS/ML VIAL SQ SCH ×2 (02:00→09:35)
[2018-02-21 03:18] VITALS: BP 129/57; PULSE 65; RESP 17; TEMP 98; O2SAT 96
[2018-02-21] MEDS: ACETAMINOPHEN/HYDROcodone 325 MG/7.5 MG TAB PO PRN ×3 (05:39→14:09)
[2018-02-21] MEDS: SODIUM CHLOR 0.9% 1000 ML INJ 1,000 ML IV SCH ×2 (05:40→14:06)
[2018-02-21 08:23] VITALS: BP 120/56; PULSE 72; RESP 18; TEMP 98.9; O2SAT 97
[2018-02-21 08:43] LABS: AUTOMATED NEUTROPHIL # 4.2 TH/MM3 (1.8-7.7); BASOPHIL % 0.5 % (0.0-2.0); EOSINOPHIL % 0.1 % (0.0-4.0); HEMOGLOBIN 11.1 GM/DL (11.6-15.3); LYMPH % 31.4 % (9.0-44.0); LYMPHOCYTE # 2.3 TH/MM3 (1.0-4.8); MEAN CELL VOLUME 89.5 FL (80.0-100.0); MEAN CORPUSCULAR HEMOGLOBIN 30.2 PG (27.0-34.0); MEAN CORPUSCULAR HGB CONC 33.8 % (32.0-36.0); MEAN PLATELET VOLUME 8.9 FL (7.0-11.0); MONO % 9.5 % (0.0-8.0); MONOCYTE # 0.7 TH/MM3 (0-0.9); NEUT % 58.5 % (16.0-70.0); PLATELET COUNT 342 TH/MM3 (150-450); RED BLOOD COUNT 3.68 MIL/MM3 (4.00-5.30); RED CELL DISTRIBUTION WIDTH 13.6 % (11.6-17.2); WHITE BLOOD COUNT 7.2 TH/MM3 (4.0-11.0)
[2018-02-21 08:49] LABS: BICARBONATE 23.9 MEQ/L (21.0-32.0); CALCIUM 8.9 MG/DL (8.5-10.1); CREATININE 0.87 MG/DL (0.50-1.00)
[2018-02-21 08:51] LABS: RANDOM VANCOMYCIN 6.9 COMMENT
[2018-02-21] MEDS ORDERED: VANCOMYCIN INJ 1,250 MG in SODIUM CHLOR 0.9% 250 ML INJ 250 ML IV SCH (10:00)
[2018-02-21] MEDS ORDERED: TRIAMCINOLONE ACETONIDE 0.1% OINT 15 GM TUBE TOPICAL SCH (10:30)
--- NOTE | 2018-02-21 10:56 | MB ---
cc: Shannon Strange DPM DATE: 02/21/2018 CHIEF COMPLAINT: Right foot cellulitis, failed outpatient antibiotics. HISTORY OF PRESENT ILLNESS: Mrs. Balderas is a 67-year-old female patient, lives out of state in [place]. She states that she has a history of pustular psoriasis and has had a lot of outside stressors which led to a very severe psoriatic outbreak and right lower extremity cellulitis. She was given Bactrim at the [place] [facility], but did not have any improvement at that time. She was admitted to the ED for further evaluation. The patient states that she has pain on weightbearing in the right foot, but that the overall appearance is much better since receiving IV antibiotic. PAST MEDICAL HISTORY: Includes arthritis and suspected psoriasis. PAST SURGICAL HISTORY: Cholecystectomy. ALLERGIES: CIPROFLOXACIN, ASPIRIN AND DALBAVANCIN. FAMILY HISTORY: Noncontributory. SOCIAL HISTORY: The patient smokes 1 pack of cigarettes per day. Denies any alcohol or illicit drug abuse. LABORATORY DATA: White count 7.2, hemoglobin 11.1, hematocrit 33.0, platelets 342. Sodium 139, potassium 3.9, chloride 108, carbon dioxide 23.9, BUN 13, creatinine 0.87. Wound cultures are pending. They were obtained in the ER and are likely superficial cultures. Blood cultures are negative x 1 day. Foot and ankle x-rays are negative for any signs of gas in the soft tissue, cortical erosion, fractures or any other gross abnormalities. PHYSICAL EXAMINATION: The patient has diminished but palpable DP and PT pulses. Capillary fill time less than 3 seconds. Gross sensation is intact. Slight edema to the dorsal lateral aspect of the right foot. Both feet have scaling plaques with small petechial dots sporadically throughout. This is consistent in appearance with psoriasis and with perhaps an underlying tinea infection as well. ASSESSMENT AND PLAN: 1. Dermatitis (likely psoriasis with tinea). The patient would benefit from a skin biopsy in an outpatient setting to confirm the diagnosis of psoriasis and start systemic treatments. Any cellulitis appears to have resolved. The patient was advised to use triamcinolone topical steroid, alternating that with a good skin moisturizer. The patient states that she feels unsteady on her feet. She uses a walker, but she does not feel safe with it, physical therapy was consulted as well. The patient is okay for discharge from a podiatric standpoint. Would recommend p.o. antibiotics, broad spectrum, any cultures obtained are likely going to shows skin carina only as the wounds are very, very superficial. The patient is welcome to followup in the office but states she lives out of state and will be returning home soon. Thank you for this consultation and allowing me to be involved in this patient's care. ROSALES Schaefer/PAULETTE , 10:30 AM , 10:55 AM
[2018-02-21 12:31] VITALS: BP 130/60; PULSE 75; RESP 20; TEMP 98.2; O2SAT 97
[2018-02-21] MEDS ORDERED: TRIAM.1%T TOPICAL (14:17)
[2018-02-21] MEDS ORDERED: DOXY100C PO (14:17)
[2018-02-21] MEDS ORDERED: AUGM875T3 PO (14:17)
[2018-02-21] MEDS ORDERED: HYDR-3516 PO (14:26)
[2018-02-21] MEDS ORDERED: WALKER WHEELS/F1 MIS (14:29)
--- NOTE | 2018-02-21 14:33 | HHI.PR ---
Subjective Remarks Patient says she is feeling well. Would like to go home. Reports pain is under control. Denies any chest pain or shortness of breath. Objective Vital Signs Date Time Temp Pulse Resp B/P (MAP) Pulse Ox O2 Delivery O2 Flow Rate FiO2 02/21/18 12:31 98.2 75 20 130/60 (83) 97 02/21/18 08:23 98.9 72 18 120/56 (77) 97 02/21/18 03:18 98.0 65 17 129/57 (81) 96 02/20/18 23:08 98.0 98 17 134/63 (86) 95 02/20/18 20:18 98 02/20/18 20:14 98.4 78 18 134/64 (87) 95 02/20/18 16:00 97.8 78 18 130/58 (82) 96 I/O 02/20/18 02/20/18 02/20/18 02/21/18 02/21/18 02/21/18 07:00 15:00 23:00 07:00 15:00 23:00 Intake Total 250 ml 950 ml Balance 250 ml 950 ml Intake Oral 700 ml IV Total 250 ml 250 ml # Voids 1 # Bowel Movements 1 Result Diagram: 02/21/1831 02/21/18 0731 Objective Remarks GENERAL: Sitting up in bed. Appears comfortable. Alert and oriented 4. SKIN: Warm and dry. HEAD: Normocephalic. EYES: No scleral icterus. No injection or drainage. NECK: Supple, trachea midline. No JVD . CARDIOVASCULAR: Regular rate and rhythm without murmurs, gallops, or rubs. RESPIRATORY: Breath sounds equal bilaterally. No accessory muscle use. GASTROINTESTINAL: Abdomen soft, non-tender, nondistended. MUSCULOSKELETAL: No cyanosis, or edema. BACK: Nontender without obvious deformity. No CVA tenderness. A/P Assessment and Plan 57 years old female with history of pustular psoriasis and right foot injury 5 months ago presented with //Recurrent right dorsal foot infection failed outpatient antibiotic //Allergic reaction to Dalbavancin //History of basilar psoriasis patient not on any other medication besides emollient = Patient has allergy to Cipro. Appreciate podiatry assistance. Discharge home on triamcinolone cream for psoriasis, Augmentin and doxycycline for treatment of cellulitis. //Suspected diabetes. -Is likely mild diabetes. Instructed patient on diabetic diet. A1c is pending. Follow with primary care. Discharge Planning Discharge home in good condition. Diabetic diet. Activity as tolerated. Elevate leg as able. Wound care as instructed by podiatry. Please see discharge medication reconciliation for medication list. Follow-up with podiatry and primary care as outpatient. Eusebio De La Fuente MD Feb 21, 2018 14:33
[2018-02-23] MEDS ORDERED: PHARMACY ORDERED LAB ONE (09:45)
== END 2018-02-21 17:50 | disposition home or self-care (01) ==
LOC: NEPE 19:20 → NEDA 02-20 08:07 → UNDOADMOB 02-20 08:08 → NEDA 02-20 10:40 → NEPFCDU 02-20 10:40 → INTOOBSV 02-21 13:39 → OBSVTOIN 02-21 13:39 → UNDODISOB 02-21 17:50
PROVIDERS: ADMIT Internal Medicine; ATTEND Internal Medicine
DX: L03.115 Cellulitis of right lower limb (principal); L40.1 Generalized pustular psoriasis; M79.89 Other specified soft tissue disorders; R73.9 Hyperglycemia, unspecified; M19.90 Unspecified osteoarthritis, unspecified site; Z83.3 Family history of diabetes mellitus; F17.210 Nicotine dependence, cigarettes, uncomplicated; Z86.73 Personal history of transient ischemic attack (TIA), and cerebral infarction without residual deficits
CPT/HCPCS: 73610; 73630; 80048; 80053; 80202; 82948; 83605; 83690; 85025; 86403; 87040; 87070; 87205; 96361; 96365; 96366; 96367; 96372; 96375; 97162; 99285; G0378; G8987; G8988; J0875; J1200; J1644; J1885; J2270; J2930; J3370; J7030; J7050; J7060